=== PATIENT | male | born 2000 | race Caucasian/White ===

== ENCOUNTER 2021-06-14 22:20 | Emergency (ER) | payer BC, OTHER ==
[2021-06-14] MEDS ORDERED: Fluorescein Opthalmic Strip ONE (22:50)
[2021-06-14] MEDS ORDERED: Tetracaine 0.5% PF 4 ML BOT ONE (22:50)
[2021-06-14] MEDS ORDERED: Ketorolac Tromethamine 30 MG/ML VIAL ONE (23:25)
== END 2021-06-14 23:56 | disposition home or self-care (01) ==
LOC: CSHERS 22:20
DX: S00.251A Superficial foreign body of right eyelid and periocular area, initial encounter (principal); S20.219A Contusion of unspecified front wall of thorax, initial encounter; S80.01XA Contusion of right knee, initial encounter; I10 Essential (primary) hypertension; G43.909 Migraine, unspecified, not intractable, without status migrainosus; Z79.899 Other long term (current) drug therapy; V49.40XA Driver injured in collision with unspecified motor vehicles in traffic accident, initial encounter
CPT/HCPCS: 71045; 96372; J1885